=== PATIENT | female | born 1990 | race Caucasian/White ===

== ENCOUNTER 2017-11-18 16:22 | Inpatient (IN) | payer MEDICARE, OTHER ==
[~2017-11-18] VITALS: Ht 144.8 cm; Wt 45.0 kg
[~2017-11-18 16:22] MED LIST: COUMADIN3 MG PO
--- OUTSIDE RECORDS SUMMARY | 2017-11-18 16:25 | XMS REPORT | Clinical Summary ---
Author Author [facility] Address Unknown Phone Unavailable Care Team Providers Care Pai Gow Manager Name Role Phone Jorge Westfall DO PCP Allergies Active Allergy Reactions Severity Noted Date Comments Sulfamethoxazole-Trimetho 12/29/2016 prim Latex 12/29/2016 Metoclopramide Hcl 12/29/2016 Ondansetron Hcl 12/29/2016 Current Medications Not on file Active Problems Not on file Encounters Date Type Specialty Care Team Description 12/29/2016 Emergency Emergency Medicine Gabriele Sousa MD Dysuria ( Primary Dx); Abdominal pain, unspecified location after 11/17/2016 Social History Tobacco Use Types Packs/Day Years Used Date Never Assessed Sex Assigned at Date Recorded Not on file Last Filed Vital Signs Vital Sign Reading Time Taken Blood Pressure 119/72 12/29/2016 6:03 PM CDT Pulse 93 12/29/2016 6:03 PM CDT Temperature 36.9 C (98.4 F) 12/29/2016 6:03 PM CDT Respiratory Rate 15 12/29/2016 6:03 PM CDT Oxygen Saturation 99% 12/29/2016 6:03 PM CDT Inhaled Oxygen - - Concentration Weight 49 kg (108 lb) 12/29/2016 6:03 PM CDT Height 144.8 cm (4' 9") 12/29/2016 6:03 PM CDT Body Mass Index 23.37 12/29/2016 6:03 PM CDT Plan of Treatment Health Maintenance Due Date Last Done Comments CERVICAL CANCER SCREENING 12/06/2012 INFLUENZA VACCINE 02/02/2018 Results Not on fileafter 11/17/2016
--- OUTSIDE RECORDS SUMMARY | 2017-11-18 16:25 | XMS REPORT ---
Author Author Admin, [facility] Address Unknown Phone Unavailable Allergies, Adverse Reactions, Alerts Allergy Name Reaction Description Start Date Severity Status Provider REGLAN Rash. Critical Active Ceasar Yu MD BACTRIM Hives Critical Active Ceasar Yu MD LATEX Critical Active Nadia Valdez MD TRAMADOL Critical Active Nadia Valdez MD ZOFRAN Critical Active Nadia Valdez MD Conditions or Problems Problem Name Problem Code Onset Date Status Entry Date Provider Comment Standard Description Annotate Mood disorder 296.90 Active Diana TREVINO-GRAPHITE PAN DRIER TENDER Unspecified episodic mood disorder r/o PTSD 309.81 Active Diana TREVINO- GRAPHITE PAN DRIER TENDER Posttraumatic stress disorder BACK PAIN 724.5 Active Nadia Valdez MD Backache, unspecified EXAMINATION OR TEST POSITIVE RESULT V72.42 Active 2013 Nadia Valdez MD examination or test, positive result ANXIETY STATE NOS 300.00 Active Nury TREVINO Anxiety state, unspecified PARENT-CHILD RELATIONAL PROBLEM V61.20 Active Nury TREVINO Counseling for parent-child problem, unspecified POLYSUBSTANCE DEPENDENCE 304.80 Active Nury TREVINO Combinations of drug dependence excluding opioid type drug, unspecified use ADJUSTMENT DISORDER WITH ANXIETY 309.24 Inactive Diana TREVINO-J LUIS Adjustment disorder with anxiety ADJUSTMENT DISORDER WITH ANXIETY ICD-309.24 Inactive Diana Cannon NUTRITION PROFESSOR-GRAPHITE PAN DRIER TENDER ANXIETY STATE NOS ICD-300.00 Inactive Nury Jackson NUTRITION PROFESSOR ANXIETY STATE NOS 300.00 Resolved Nury Renetta [facility] Anxiety state, unspecified Medication List Medication Instructions Start Date Stop Date Generic Name NDC Status Provider Patient Instruction TRAZODONE HCL 100 MG ORAL TABLET Take 1/2-1 tablet at bedtime as needed for sleep. TRAZODONE HCL 63575373658 Active Ceasar Yu MD Active DICYCLOMINE HCL 20 MG ORAL TABLET DICYCLOMINE HCL 06092222210 Active Ceasar Yu MD Active ADVAIR DISKUS 250-50 MCG/DOSE INHALATION AEROSOL POWDER BREATH ACTIVATED FLUTICASONE-SALMETEROL 55136735752 Active Ceasar Yu MD Active AMITRIPTYLINE HCL 75 MG ORAL TABLET AMITRIPTYLINE HCL 53899228768 Active Ceasar Yu MD Active ESCITALOPRAM OXALATE 20 MG ORAL TABLET ESCITALOPRAM OXALATE 35781093486 Active Ceasar Yu MD Active GABAPENTIN 100 MG ORAL CAPSULE GABAPENTIN 91793851720 Active Ceasar Yu MD Active LORAZEPAM 1 MG ORAL TABLET LORAZEPAM 14456072246 Active Ceasar Yu MD Active METHOCARBAMOL 750 MG ORAL TABLET METHOCARBAMOL 71072186973 Active Ceasar Yu MD Active PROMETHAZINE HCL 12.5 MG ORAL TABLET PROMETHAZINE HCL 12817157678 Active Ceasar Yu MD Active SYMBICORT 160-4.5 MCG/ACT INHALATION AEROSOL BUDESONIDE- FORMOTEROL FUMARATE 22412009476 Active Ceasar Yu MD Active FAMOTIDINE 20 MG ORAL TABLET FAMOTIDINE 19628101342 Active Ceasar Yu MD Active LAMOTRIGINE 25 MG ORAL TABLET Take 2 tablets by mouth daily. LAMOTRIGINE 68516667697 Active Ceasar Yu MD Active DICLOFENAC SODIUM 50 MG ORAL TABLET DELAYED RELEASE 1 tab By Mouth Every 8 hours As Needed for back pain DICLOFENAC SODIUM 15474481496 Active Nadia Valdez MD Active TYLENOL WITH CODEINE #3 TABLET ACETAMINOPHEN-CODEINE TABS 11709542910 Active Nadia Valdez MD Active PRE-FLORINDA VITAMINES PRE-FLORINDA VITAMINES Active Nury Jackson NUTRITION PROFESSOR Active Vital Signs Date Name Value Unit Range Description blood pressure, diastolic 99 mm[Hg] BP woods blood pressure, systolic 148 mm[Hg] BP sys height E&M 58 [in_us] Bdy height pulse rate E&M 116 /min Heart rate weight E&M 109 [lb_av] Weight Measured Encounters Date Encounter Provider Code Facility 10:18:09 SALES REPRESENTATIVES Est Patient Exp Problem - 29614 Nadia Valdez MD CPT-44521 [facility] Procedures Code Procedure Name Date Entry Date Standard Description CPT-31453 Diagnostic evaluation with medical - 68228 13:36:08 CDT CPT-50787 Diagnostic evaluation (no medical) - 07753 10:22:47 SALES REPRESENTATIVES CPT-52345 Individual Psychotherapy (45 - 50 mins) - 60736 21:59: 47 CDT CPT-15463 Group Psychotherapy - 36771 11:19:45 CDT CPT-80035 Individual Psychotherapy (45 - 50 mins) - 90289 22:08: 40 CDT CPT-18740 Group Psychotherapy - 40783 12:56:30 CDT CPT-99466 Individual Psychotherapy (45 - 50 mins) - 62878 13:42: 43 CDT CPT-71436 Group Psychotherapy - 10319 15:40:48 CDT CPT-52311 Individual Psychotherapy (45 - 50 mins) - 21441 12:19: 37 CDT CPT-96689 Individual Psychotherapy (45 - 50 mins) - 54474 23:53: 53 CDT CPT-59758 Group Psychotherapy - 44686 13:38:37 CDT CPT-83411 Group Psychotherapy - 59563 14:31:19 CDT CPT-08818 Group Psychotherapy - 27343 15:20:57 CDT
[2017-11-18] MEDS ORDERED: SODIUM CHLORIDE 0.9% 1000ML 1,000 ML IV STA (16:56)
[2017-11-18 17:09] LABS: BASOPHILS # (AUTO) 0.1 (0.0-0.1); BASOPHILS % 0.7 % (0.0-1.0); EOSINOPHILS # (AUTO) 0.4 (0.0-0.4); EOSINOPHILS % 3.3 % (0.0-6.0); HEMATOCRIT 36.7 % (34.2-44.1); HEMOGLOBIN 12.4 g/dL (12.0-16.0); LYMPHOCYTES # (AUTO) 2.3 (1.0-3.2); LYMPHOCYTES % 19.8 % (18.0-39.1); MEAN CORPUSCULAR HEMOGLOBIN 29.6 pg (28-32); MEAN CORPUSCULAR HGB CONC 33.8 g/dL (31-35); MEAN CORPUSCULAR VOLUME 87.6 fL (81-99); MONOCYTES # (AUTO) 1.2 (0.2-0.8); MONOCYTES % 10.5 % (4.4-11.3); NEUTROPHILS # (AUTO) 7.5 (2.1-6.9); NEUTROPHILS % 65.4 % (38.7-80.0); PLATELET COUNT 294 x10e3/uL (140-360); RED BLOOD COUNT 4.19 x10e6/uL (3.6-5.1); RED CELL DISTRIBUTION WIDTH 14.6 % (11.7-14.4)
[2017-11-18 17:14] LABS: INR 0.94; PROTHROMBIN TIME 11.8 seconds (11.9-14.5)
[2017-11-18 17:15] LABS: PARTIAL THROMBOPLASTIN TIME 27.6 seconds (23.8-35.5)
[2017-11-18 17:22] LABS: ALANINE AMINOTRANSFERASE 19 IU/L (0-55); ALBUMIN 3.4 g/dL (3.5-5.0); ALBUMIN/GLOBULIN RATIO 0.8 (0.8-2.0); ALKALINE PHOSPHATASE 75 IU/L (40-150); ANION GAP 14.3 mmol/L (8-16); BLOOD UREA NITROGEN 28 mg/dL (7-26); BUN/CREATININE RATIO 12 (6-25); CALCIUM 9.9 mg/dL (8.4-10.2); CARBON DIOXIDE 24 mmol/L (22-29); CHLORIDE 107 mmol/L (98-107); CREATINE KINASE 36 IU/L (29-168); CREATININE, SERUM 2.38 mg/dL (0.57-1.11); EST GLOMERULAR FILTRATION RATE 25 ML/MIN (60-); GLUCOSE 85 mg/dL (74-118); POTASSIUM 4.3 mmol/L (3.5-5.1); SODIUM 141 mmol/L (136-145)
[2017-11-18 17:54] LABS: CLARITY,URINE TURBID (CLEAR); COLOR,URINE YELLOW (YELLOW)
[2017-11-18 17:55] LABS: BILIRUBIN,URINE 1+ (NEGATIVE); KETONES,URINE NEGATIVE (NEGATIVE); LEUKOCYTE ESTERASE ,URINE 2+ (NEGATIVE); NITRITE,URINE POSITIVE (NEGATIVE); PROTEIN,URINE DIPSTICK 3+ (NEGATIVE); URINE UROBILINOGEN 0.2 mg/dL (0.2 - 1)
[2017-11-18 18:07] LABS: RBC,URINE 0-5 /HPF (0-5); WBC,URINE (MAN) >50 /HPF (0-5)
[2017-11-18 18:08] LABS: BACTERIA,URINE MANY /HPF; EPITHELIAL CELLS,URINE FEW /LPF; MUCUS,URINE FEW (RARE)
[2017-11-18 19:45] LABS: AMPHETAMINES SCREEN,URINE NEGATIVE (NEGATIVE); BENZODIAZEPINES SCREEN,URINE NEGATIVE (NEGATIVE); PHENCYCLIDINE SCREEN,URINE NEGATIVE (NEGATIVE)
[2017-11-18] MEDS ORDERED: SODIUM CHLORIDE 0.9% 1000ML 1,000 ML IV SCH (20:45)
--- NOTE | 2017-11-18 20:47 | Diagnostic Imaging Report ---
EXAM: CT Abdomen and Pelvis WITHOUT contrast INDICATION: Left flank pain. COMPARISON: None. TECHNIQUE: Abdomen and pelvis were scanned utilizing a multidetector helical scanner from the lung base to the pubic symphysis without administration of IV contrast. Absence of intravenous contrast decreases sensitivity for detection of focal lesions and vascular pathology. Coronal and sagittal reformations were obtained. Renal stone protocol was performed. IV CONTRAST: None. ORAL CONTRAST: Water RADIATION DOSE: Total DLP: 157 mGy*cm Estimated effective dose: (DLP x 0.015 x size factor) mSv COMPLICATIONS: None FINDINGS: LINES and TUBES: None. [place] IVC filter. LOWER THORAX: Unremarkable HEPATOBILIARY: No focal hepatic lesions. No biliary ductal dilation. GALLBLADDER: No radio-opaque stones or sludge. No wall thickening. SPLEEN: Surgically absent. Splenule. PANCREAS: No focal masses or ductal dilatation. ADRENALS: No adrenal nodules KIDNEYS/URETERS: Mild left hydronephrosis.. No cystic or solid mass lesions. No stones. GI TRACT: No abnormal distention, wall thickening, or evidence of bowel obstruction. Appendix is normal. PELVIC ORGANS/BLADDER: Soft tissue prominence in the pelvis may be in part related to enlarged uterus. LYMPH NODES: Soft tissue attenuation in the periaortic region are not well evaluated due to the paucity of retroperitoneal/abdominal fat, and lack of contrast. VESSELS: Unremarkable. PERITONEUM / RETROPERITONEUM: No free air or fluid. BONES: Unremarkable. SOFT TISSUES: Bilateral breast implants. IMPRESSION: 1. Left-sided hydronephrosis without evidence of left ureteral calculus. 2. Soft tissue prominence in the retroperitoneum may concerning for lymphadenopathy. There is also soft tissue prominence in the pelvis. Evaluation limited due to the lack of contrast. Recommend further evaluation with CT abdomen and pelvis with IV and oral contrast if renal function permits. Otherwise consider further evaluation with complete ultrasound of pelvis, and ultrasound kidneys. Signed by: Dr. Mp Buckley M.D. on 11/18/2017 8:43 PM
[2017-11-18] MEDS ORDERED: MORPHINE SULFATE 2 MG/ML SYR IV STA (21:12)
[2017-11-18] MEDS ORDERED: ONDANSETRON HCL 4 MG ORAL DISINTEGRATING TAB PO PRN (21:15)
[2017-11-18] MEDS ORDERED: CEFTRIAXONE SOD 1 GM VIAL IV ONE (21:15)
[2017-11-18] MEDS ORDERED: MORPHINE SULFATE 2 MG/ML SYR IV PRN (21:15)
--- OUTSIDE RECORDS SUMMARY | 2017-11-18 21:37 | XMS REPORT | Clinical Summary ---
Author Author [facility] Address Unknown Phone Unavailable Care Team Providers Care Manager Transmission Name Role Phone oJrge Westfall DO PCP Allergies Active Allergy Reactions [...]
--- OUTSIDE RECORDS SUMMARY | 2017-11-18 21:37 | XMS REPORT ---
Author Author [facility] Address Unknown Phone Unavailable Care Team Providers Care Digital Experience Manager Name Role Phone JEMAL QUINTERO Unavailable Unavailable Problems This patient has no known problems. Allergies, Adverse Reactions, Alerts This patient has no known allergies or adverse reactions. Medications This patient has no known medications. Results Test Description Test Time Test Comments Text Results Atomic Results Result Comments CT ABDOMEN/PELVIS WO [place] [id number] Patient Name: TEAGAN VILLEDA MR #: [id number] : 1990 Age/Sex: 26/F Req #: [id number] Adm Physician: Ordered by: PHOENIX NATHAN LANDING SUPPORT SPECIALIST Report #: [id number] Location: ER Room/Bed: Procedure: [id number] CT/CT ABDOMEN/PELVIS WO Exam Date: 11/18/17 Exam Time: 2009 REPORT STATUS: Signed EXAM: CT Abdomen and Pelvis WITHOUT contrast INDICATION: Left flank pain. COMPARISON: None. TECHNIQUE: Abdomen and pelvis were scanned utilizing a multidetector helical scanner from the lung base to the pubic symphysis without administration of IV contrast. Absence of intravenous contrast decreases sensitivity for detection of focal lesions and vascular pathology. Coronal and sagittal reformations were obtained. Renal stone protocol was performed. IV CONTRAST: None. ORAL CONTRAST: Water RADIATION DOSE: Total DLP: 157 mGy*cm Estimated effective dose: (DLP x 0.015 x size factor) mSv COMPLICATIONS: None FINDINGS: LINES and TUBES: None. Birdsnest IVC filter. LOWER THORAX: Unremarkable HEPATOBILIARY: No focal hepatic lesions. No biliary ductal dilation. GALLBLADDER: No radio-opaque stones or sludge. No wall thickening. SPLEEN: Surgically absent. Splenule. PANCREAS: No focal masses or ductal dilatation. ADRENALS: No adrenal nodules KIDNEYS/URETERS: Mild left hydronephrosis.. No cystic or solid mass lesions. No stones. GI TRACT: No abnormal distention, wall thickening, or evidence of bowel obstruction. Appendix is normal. PELVIC ORGANS/ BLADDER: Soft tissue prominence in the pelvis may be in part related to enlarged uterus. LYMPH NODES: Soft tissue attenuation in the periaortic region are not well evaluated due to the paucity of retroperitoneal/abdominal fat, and lack of contrast. VESSELS: Unremarkable. PERITONEUM / RETROPERITONEUM: No free air or fluid. BONES: Unremarkable. SOFT TISSUES: Bilateral breast implants. IMPRESSION: 1. Left-sided hydronephrosis without evidence of left ureteral calculus. 2. Soft tissue prominence in the retroperitoneum may concerning for lymphadenopathy. There is also soft tissue prominence in the pelvis. Evaluation limited due to the lack of contrast. Recommend further evaluation with CT abdomen and pelvis with IV and oral contrast if renal function permits. Otherwise consider further evaluation with complete ultrasound of pelvis, and ultrasound kidneys. Signed by: Dr. Mp Rodgers M.D. on 11/18/2017 8:43 PM Dictated By: CYNDIE RODGERS MD, MD 42 Transcribed By: HELLEN on 11/18/172042 COPY TO: PHOENIX NATHAN NP
--- OUTSIDE RECORDS SUMMARY | 2017-11-18 21:37 | XMS REPORT ---
Author Author Admin, [facility] Address Unknown Phone Unavailable Allergies, Adverse Reactions, [...] Description Annotate Mood disorder 296.90 Active Diana TREVINO-DONOR SUPPORT TECHNICIAN Unspecified episodic mood disorder r/o PTSD 309.81 Active Diana TREVINO- DONOR SUPPORT TECHNICIAN Posttraumatic stress disorder BACK PAIN 724.5 Active [...] DISORDER WITH ANXIETY ICD-309.24 Inactive Diana Cannon DRIVING TEACHER-DONOR SUPPORT TECHNICIAN ANXIETY STATE NOS ICD-300.00 Inactive Nury Jackson DRIVING TEACHER ANXIETY STATE NOS 300.00 Resolved Nury Renetta [facility] Anxiety state, unspecified Medication List Medication Instructions Start Date Stop Date Generic Name NDC Status Provider Patient Instruction TRAZODONE HCL 100 MG ORAL TABLET Take 1/2-1 tablet at bedtime as needed for sleep. TRAZODONE HCL 45401310955 Active Ceasar Yu MD Active DICYCLOMINE HCL 20 MG ORAL TABLET DICYCLOMINE HCL 60508538644 Active Ceasar Yu MD Active ADVAIR DISKUS 250-50 MCG/DOSE INHALATION AEROSOL POWDER BREATH ACTIVATED FLUTICASONE-SALMETEROL 34871611265 Active Ceasar Yu MD Active AMITRIPTYLINE HCL 75 MG ORAL TABLET AMITRIPTYLINE HCL 89145973316 Active Ceasar Yu MD Active ESCITALOPRAM OXALATE 20 MG ORAL TABLET ESCITALOPRAM OXALATE 87377484127 Active Ceasar Yu MD Active GABAPENTIN 100 MG ORAL CAPSULE GABAPENTIN 88295972041 Active Ceasar Yu MD Active LORAZEPAM 1 MG ORAL TABLET LORAZEPAM 33759646698 Active Ceasar Yu MD Active METHOCARBAMOL 750 MG ORAL TABLET METHOCARBAMOL 61244113815 Active Ceasar Yu MD Active PROMETHAZINE HCL 12.5 MG ORAL TABLET PROMETHAZINE HCL 49703090489 Active Ceasar Yu MD Active SYMBICORT 160-4.5 MCG/ACT INHALATION AEROSOL BUDESONIDE- FORMOTEROL FUMARATE 89347259654 Active Ceasar Yu MD Active FAMOTIDINE 20 MG ORAL TABLET FAMOTIDINE 73107359149 Active Ceasar Yu MD Active LAMOTRIGINE 25 MG ORAL TABLET Take 2 tablets by mouth daily. LAMOTRIGINE 87325814405 Active Ceasar Yu MD Active DICLOFENAC SODIUM 50 MG ORAL TABLET DELAYED RELEASE 1 tab By Mouth Every 8 hours As Needed for back pain DICLOFENAC SODIUM 32333446988 Active Nadia Valdez MD Active TYLENOL WITH CODEINE #3 TABLET ACETAMINOPHEN-CODEINE TABS 28228857195 Active Nadia Valdez MD Active PRE-FLORINDA VITAMINES PRE-FLORINDA VITAMINES Active Nury Jackson DRIVING TEACHER Active Vital Signs Date Name Value Unit Range Description blood pressure, diastolic 99 mm[Hg] BP woods blood pressure, systolic 148 mm[Hg] BP sys height E&M 58 [in_us] Bdy height pulse rate E&M 116 /min Heart rate weight E&M 109 [lb_av] Weight Measured Encounters Date Encounter Provider Code Facility 10:18:09 MACHINE SHOP HELPER Est Patient Exp Problem - 04979 Nadia Valdez MD CPT-67276 [facility] Procedures Code Procedure Name Date Entry Date Standard Description CPT-88738 Diagnostic evaluation with medical - 44308 13:36:08 CDT CPT-54512 Diagnostic evaluation (no medical) - 72822 10:22:47 MACHINE SHOP HELPER CPT-49609 Individual Psychotherapy (45 - 50 mins) - 77328 21:59: 47 CDT CPT-87328 Group Psychotherapy - 97991 11:19:45 CDT CPT-94467 Individual Psychotherapy (45 - 50 mins) - 59199 22:08: 40 CDT CPT-27047 Group Psychotherapy - 77596 12:56:30 CDT CPT-21694 Individual Psychotherapy (45 - 50 mins) - 60465 13:42: 43 CDT CPT-02859 Group Psychotherapy - 16499 15:40:48 CDT CPT-57471 Individual Psychotherapy (45 - 50 mins) - 68245 12:19: 37 CDT CPT-48025 Individual Psychotherapy (45 - 50 mins) - 74988 23:53: 53 CDT CPT-56933 Group Psychotherapy - 58373 13:38:37 CDT CPT-77697 Group Psychotherapy - 13606 14:31:19 CDT CPT-49533 Group Psychotherapy - 50727 15:20:57 CDT
[2017-11-18] MEDS: SODIUM CHLORIDE 0.9% 1000ML 1,000 ML IV SCH (21:46)
[2017-11-18 22:00] VITALS: BP 147/103
[2017-11-19] VITALS (8 sets, daily range): BP systolic 115–155; BP diastolic 66–100
[2017-11-19] MEDS: HYDROCODONE/APAP 5MG-325MG TAB PO PRN ×2 (00:29→22:48)
[2017-11-19] MEDS: SODIUM CHLORIDE 0.9% 1000ML 1,000 ML IV SCH ×3 (05:15→21:14)
[2017-11-19] MEDS ORDERED: ROBAXIN-750750 MG PO (05:23)
[2017-11-19] MEDS ORDERED: LAMICTAL100 MG PO (05:23)
[2017-11-19] MEDS ORDERED: ATIVAN1 MG PO (05:26)
[2017-11-19] MEDS ORDERED: TRAZODONE HCL50 MG PO (05:26)
[2017-11-19] MEDS ORDERED: XANAX0.5 MG PO (05:26)
[2017-11-19] MEDS ORDERED: LEXAPRO10 MG PO (05:27)
[2017-11-19] MEDS ORDERED: BENTYL10 MG/1 ML IV (05:28)
[2017-11-19] MEDS ORDERED: GABAPENTIN100 MG PO (05:30)
[2017-11-19 07:08] LABS: BASOPHILS # (AUTO) 0.1 (0.0-0.1); BASOPHILS % 0.7 % (0.0-1.0); EOSINOPHILS # (AUTO) 0.6 (0.0-0.4); EOSINOPHILS % 5.4 % (0.0-6.0); HEMATOCRIT 37.5 % (34.2-44.1); HEMOGLOBIN 12.2 g/dL (12.0-16.0); MEAN CORPUSCULAR HEMOGLOBIN 29.5 pg (28-32); MEAN CORPUSCULAR HGB CONC 32.5 g/dL (31-35); MEAN CORPUSCULAR VOLUME 90.8 fL (81-99); MONOCYTES # (AUTO) 1.5 (0.2-0.8); MONOCYTES % 13.2 % (4.4-11.3); NEUTROPHILS % 53.3 % (38.7-80.0); PLATELET COUNT 333 x10e3/uL (140-360); RED BLOOD COUNT 4.13 x10e6/uL (3.6-5.1); RED CELL DISTRIBUTION WIDTH 14.8 % (11.7-14.4)
[2017-11-19 08:00] LABS: ALBUMIN/GLOBULIN RATIO 0.8 (0.8-2.0); ANION GAP 13.5 mmol/L (8-16); CALCIUM 9.2 mg/dL (8.4-10.2); CREATININE, SERUM 1.93 mg/dL (0.57-1.11); POTASSIUM 4.5 mmol/L (3.5-5.1)
[2017-11-19] MEDS: GABAPENTIN 100 MG CAP PO SCH ×2 (08:46→16:22)
[2017-11-19] MEDS: LORAZEPAM 1 MG TAB PO SCH ×3 (08:46→21:00)
[2017-11-19] MEDS ORDERED: LAMOTRIGINE 100 MG TAB PO SCH ×2 (09:00)
[2017-11-19] MEDS ORDERED: PROMETHAZINE 25MG/ NS 50ML (IV) IV PRN (10:30)
[2017-11-19] MEDS ORDERED: ACETAMINOPHEN 325 MG TAB PO PRN (10:30)
[2017-11-19] MEDS ORDERED: HYDRALAZINE HCL 20 MG/ML VIAL IV PRN (10:30)
[2017-11-19] MEDS ORDERED: PROMETHAZINE 12.5MG/ NACL 0.9% 50 ML IV PRN (10:45)
[2017-11-19] MEDS: MORPHINE SULFATE 2 MG/ML SYR IV PRN ×2 (11:11→16:23)
[2017-11-19] MEDS ORDERED: AMITRIPTYLINE H25 MG PO (13:29)
[2017-11-19] MEDS ORDERED: PEPCID20 MG PO (13:29)
[2017-11-19] MEDS ORDERED: TYLENOL WITH C1 EAC1 PO (13:33)
[2017-11-19] MEDS: LAMOTRIGINE 25 MG TAB PO SCH (15:18)
[2017-11-19] MEDS: ESCITALOPRAM OXALATE 10 MG TAB PO SCH (21:00)
[2017-11-19] MEDS: TRAZODONE HCL 50 MG TAB PO SCH (21:00)
[2017-11-19] MEDS: CEFTRIAXONE SOD 1 GM VIAL IV SCH (21:15)
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
[2017-11-20] VITALS (7 sets, daily range): BP systolic 133–154; BP diastolic 77–100
[2017-11-20 08:03] LABS: BASOPHILS # (AUTO) 0.1 (0.0-0.1); BASOPHILS % 0.6 % (0.0-1.0); EOSINOPHILS # (AUTO) 0.6 (0.0-0.4); EOSINOPHILS % 5.4 % (0.0-6.0); HEMATOCRIT 32.5 % (34.2-44.1); HEMOGLOBIN 10.7 g/dL (12.0-16.0); LYMPHOCYTES # (AUTO) 2.6 (1.0-3.2); LYMPHOCYTES % 24.5 % (18.0-39.1); MEAN CORPUSCULAR HEMOGLOBIN 29.2 pg (28-32); MEAN CORPUSCULAR HGB CONC 32.9 g/dL (31-35); MEAN CORPUSCULAR VOLUME 88.8 fL (81-99); MONOCYTES # (AUTO) 1.3 (0.2-0.8); MONOCYTES % 12.1 % (4.4-11.3); PLATELET COUNT 347 x10e3/uL (140-360); RED BLOOD COUNT 3.66 x10e6/uL (3.6-5.1); RED CELL DISTRIBUTION WIDTH 14.5 % (11.7-14.4)
[2017-11-20] MEDS: MORPHINE SULFATE 2 MG/ML SYR IV PRN ×3 (08:12→19:30)
[2017-11-20] MEDS: LAMOTRIGINE 25 MG TAB PO SCH (08:12)
[2017-11-20] MEDS: GABAPENTIN 100 MG CAP PO SCH ×2 (08:12→16:34)
[2017-11-20] MEDS: LORAZEPAM 1 MG TAB PO SCH ×3 (08:12→20:49)
[2017-11-20] MEDS: SODIUM CHLORIDE 0.9% 1000ML 1,000 ML IV SCH ×3 (08:12→21:14)
[2017-11-20 08:26] LABS: ANION GAP 12.8 mmol/L (8-16); CALCIUM 8.6 mg/dL (8.4-10.2); CREATININE, SERUM 1.53 mg/dL (0.57-1.11); MAGNESIUM 1.2 MG/DL (1.3-2.1); POTASSIUM 3.8 mmol/L (3.5-5.1)
[2017-11-20 09:24] LABS: ALBUMIN 2.5 g/dL (3.5-5.0); BILIRUBIN,DIRECT 0.1 mg/dL (0.0-0.5)
[2017-11-20] MEDS ORDERED: CEFTIN PO ×2 (12:22→12:29)
[2017-11-20] MEDS: CEFTRIAXONE SOD 1 GM VIAL IV SCH (20:49)
[2017-11-20] MEDS: ESCITALOPRAM OXALATE 10 MG TAB PO SCH (20:49)
[2017-11-20] MEDS: TRAZODONE HCL 50 MG TAB PO SCH (20:49)
[2017-11-20] MEDS: HYDROCODONE/APAP 5MG-325MG TAB PO PRN (23:18)
[2017-11-21] VITALS (7 sets, daily range): BP systolic 126–157; BP diastolic 71–97
[2017-11-21] MEDS: MORPHINE SULFATE 2 MG/ML SYR IV PRN ×2 (04:34→22:49)
[2017-11-21] MEDS: SODIUM CHLORIDE 0.9% 1000ML 1,000 ML IV SCH ×3 (05:14→21:30)
[2017-11-21 09:09] LABS: BASOPHILS # (AUTO) 0.1 (0.0-0.1); BASOPHILS % 0.7 % (0.0-1.0); EOSINOPHILS # (AUTO) 0.3 (0.0-0.4); EOSINOPHILS % 2.5 % (0.0-6.0); HEMATOCRIT 31.6 % (34.2-44.1); HEMOGLOBIN 10.4 g/dL (12.0-16.0); LYMPHOCYTES # (AUTO) 2.6 (1.0-3.2); MEAN CORPUSCULAR HEMOGLOBIN 29.4 pg (28-32); MEAN CORPUSCULAR HGB CONC 32.9 g/dL (31-35); MEAN CORPUSCULAR VOLUME 89.3 fL (81-99); MONOCYTES % 9.4 % (4.4-11.3); NEUTROPHILS # (AUTO) 6.4 (2.1-6.9); NEUTROPHILS % 61.9 % (38.7-80.0); PLATELET COUNT 392 x10e3/uL (140-360); RED BLOOD COUNT 3.54 x10e6/uL (3.6-5.1); RED CELL DISTRIBUTION WIDTH 14.5 % (11.7-14.4)
[2017-11-21] MEDS: LORAZEPAM 1 MG TAB PO SCH ×3 (09:17→21:30)
[2017-11-21] MEDS: LAMOTRIGINE 25 MG TAB PO SCH (09:19)
[2017-11-21] MEDS: GABAPENTIN 100 MG CAP PO SCH ×2 (09:19→16:04)
[2017-11-21] MEDS: MAGNESIUM OXIDE 400 MG TAB PO SCH ×2 (09:19→16:04)
[2017-11-21 09:27] LABS: CALCIUM 9.3 mg/dL (8.4-10.2); CREATININE, SERUM 1.47 mg/dL (0.57-1.11); MAGNESIUM 1.4 MG/DL (1.3-2.1)
--- NOTE | 2017-11-21 11:26 | Diagnostic Imaging Report ---
HISTORY: Lymphadenopathy on abdominal CT; history of splenectomy, IVC filter, and portal vein thrombus TECHNIQUE: Selected static images from complete abdominal ultrasound provided for INTERPRETATION: COMPARISON: CT abdomen/pelvis 11/18/2017 FINDINGS: Pancreas: Visualized portions are normal. No ductal dilatation. Liver: Measures 15.9 cm in sagittal plane. The echotexture is mildly heterogeneous. The capsule is somewhat lobulated. No mass in the visualized portions. Portal Vein: Numerous vessels in the davida hepatis with turbulent flow. One vessel exhibits spectral Doppler waveforms suggestive of the portal vein. Its diameter cannot be assessed, however. Biliary Tree: Normal Gallbladder: Present and is diminutive. No gallstone, gallbladder wall thickening, or pericholecystic fluid. CBD: 0.3 cm. Right Kidney: Length is 12.7cm. Echotexture is normal. No mass or hydronephrosis. Left Kidney: Length is 12.3cm. Echotexture is normal. No mass. Mild pelviectasis. Spleen: Absent. Proximal Aorta: 1.3 cm. Mid Aorta: 1.2 cm. IVC: Contains thrombus and turbulent blood flow. An IVC filter tip is identified in the intrahepatic IVC (image 60 of 124). Lymph nodes: No lymphadenopathy. The bladder is well-distended and contains floating debris. No free fluid in the pelvis. No soft tissue mass in the pelvis. Inferior abdominal wall soft tissue thickening measures 17 mm. IMPRESSION: 1. IVC thrombus. IVC filter tip identified in the intrahepatic IVC. 2. Diminutive portal vein with multiple vessels in the davida hepatis suggestive of cavernous transformation. 3. No sonographic evidence of lymphadenopathy. Consider further evaluation with contrast-enhanced CT. 4. Distended urinary bladder containing debris. Mild pelviectasis of the left kidney. 5. No sonographic evidence of soft tissue mass in the pelvis. Again, reevaluation with contrast-enhanced CT is recommended. Signed by: Dr. Juan Vazquez MD on 11/21/2017 11:22 AM
[2017-11-21] MEDS: HYDROCODONE/APAP 5MG-325MG TAB PO PRN ×2 (15:16→21:31)
[2017-11-21] MEDS: TRAZODONE HCL 50 MG TAB PO SCH (21:30)
[2017-11-21] MEDS: CEFTRIAXONE SOD 1 GM VIAL IV SCH (21:30)
[2017-11-21] MEDS: ESCITALOPRAM OXALATE 10 MG TAB PO SCH (21:30)
[2017-11-22] VITALS: BP 135/78
[2017-11-22 04:00] VITALS: BP 139/83
[2017-11-22] MEDS: SODIUM CHLORIDE 0.9% 1000ML 1,000 ML IV SCH (06:08)
[2017-11-22 07:25] VITALS: BP 127/72
[2017-11-22] MEDS: MORPHINE SULFATE 2 MG/ML SYR IV PRN ×2 (07:32→12:36)
[2017-11-22 08:00] VITALS: BP 127/72
[2017-11-22] MEDS: MAGNESIUM OXIDE 400 MG TAB PO SCH (09:00)
[2017-11-22] MEDS: GABAPENTIN 100 MG CAP PO SCH (09:00)
[2017-11-22] MEDS: LAMOTRIGINE 25 MG TAB PO SCH (09:00)
[2017-11-22] MEDS: LORAZEPAM 1 MG TAB PO SCH ×2 (09:00→14:53)
[2017-11-22 12:00] VITALS: BP 112/64
[2017-11-22] MEDS ORDERED: PYRIDIUM200 MG PO (14:44)
[2017-11-22] MEDS ORDERED: CEFTIN PO (14:44)
[2017-11-22] MEDS ORDERED: ELIQUIS PO ×2 (14:54→15:10)
[2017-11-22 16:00] VITALS: BP 148/78
--- NOTE | 2017-11-22 20:32 | Discharge Summary ---
ADMISSION DIAGNOSES 1. Urinary tract infection with hydronephrosis. 2. Depression. 3. Bipolar. 4. Insomnia. 5. Hypertension. 6. Neuropathy. 7. Acute kidney injury versus chronic kidney disease. DISCHARGE DIAGNOSES 1. Urinary tract infection with hydronephrosis. 2. Depression. 3. Bipolar. 4. Insomnia. 5. Hypertension. 6. Neuropathy. 7. Acute kidney injury versus chronic kidney disease. HISTORY: Patient has a history of depression, bipolar, neuropathy, IBS, portal vein thrombus, PE, portal hypertension, IVC filter, cirrhosis, insomnia. Surgical history of splenectomy and appendectomy. HOSPITAL COURSE: A 26-year-old female, who complains of dysuria and back pain that started to radiate to her left flank about 2 weeks ago. The frequency increased as the pain began moving towards the right flank. Pain worse with initiation of urinary stream. Pain improved with pain medication. On admission, patient was started on IV fluids, as well as Rocephin. Urology was consulted. Urine culture was obtained. Patient was continued on Rocephin. Urology attempted to do a cystoscopy and was requesting records from patient's urologist prior to starting the cystoscopy. Patient's dysuria improved, but her flank pain took about 2-3 days before the pain was tolerable. Urology cancelled the cystoscopy and said she can follow up outpatient in 3 or 4 weeks. Patient was continued on home medicine for bipolar, insomnia, hypertension, neuropathy. The patient's creatinine was 2.38. After monitoring it, as well as IV fluids, at time of discharge, the creatinine came down to 1.4. Patient is admittedly very noncompliant with her home medication. A urine drug screen on admission showed she was positive for opiates, as well as cocaine. She denies cocaine use and is not sure why it showed up in her urine. Patient had a CT of abdomen on admission, which showed left-sided hydronephrosis without evidence of calculus, soft tissue prominence in the retroperitoneum may be concerning for lymphadenopathy. There was also soft tissue prominence in the pelvis. Due to the renal function, we ordered an ultrasound of pelvis versus CT with contrast. Ultrasound of the abdomen showed IVC thrombus. Patient said she takes Eliquis at home, but is not sure of the dosing or the frequency. Upon calling both of her pharmacies, they do not have any anticoagulation for the patient in the last year. Patient was sent home with Ceftin for 7 more days. Eliquis 2.5 b.i.d. and Pyridium for 3 more days. She will follow up with Dr. Buckley who is oncology/hematology for the thrombus of the IVC filter and she will follow up with Dr. Hall for the cystoscopy workup, as well as primary care in 1-2 weeks. She understands the discharge instructions and is ready to go home. Dictated By: Spring Styles NP AGUSTINA NEWSOME MD Job#: [id number] CQ
== END 2017-11-22 18:14 | disposition home or self-care (01) | DRG 690 ==
LOC: ER 16:22 → ERHOLD 21:35 → MED/SURG3 22:02
PROVIDERS: ADMIT Internal Medicine; ATTEND Internal Medicine
CPT/HCPCS: 36415; 74176; 76700; 80048; 80053; 80076; 80307; 81001; 81025; 82550; 82553; 83605; 83735; 83880; 84484; 85025; 85610; 85730; 87086; 87186; 99284; J0696; J2270; J2550; J7030